=== PATIENT | female | born 1975 | race Caucasian/White ===

== ENCOUNTER 2019-09-22 17:44 | Emergency (ER) | payer OTHER ==
[~2019-09-22] VITALS: Ht 162.6 cm; Wt 75.0 kg
--- NOTE | 2019-09-22 18:57 | PHYS DOC ---
Past Medical History Past Medical History: Anxiety, GERD Past Surgical History: Cholecystectomy, Hysterectomy, Tonsillectomy, Tubal ligation, Other Additional Past Surgical Histo: UTERINE ABLATION Alcohol Use: Rarely Adult General Chief Complaint Chief Complaint: ANXIETY/PANIC ATTACK HPI HPI 44-year-old female presents to the emergency Department complaints of shaking, any increased concern for anxiety, palpitations, paresthesias, dry mouth. Patient has underlying history of anxiety, gastroesophageal reflux disease. She describes today that she was coming home on way and it took her a number of minutes to get to [place] she began feeling palpitations increased stress and concern for anxiety, she states she took a Xanax at that time however did not resolve or improve and therefore presented to the emergency department for further evaluation. Nothing makes her symptoms better. 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 Review of Systems Review of Systems Constitutional: Denies fever or chills [] Respiratory: Denies cough/+ shortness of breath [] Cardiovascular: No additional information not addressed in HPI [] GI: Denies abdominal pain, nausea, vomiting, bloody stools or diarrhea [] : Denies dysuria or hematuria [] Musculoskeletal: Denies back pain or joint pain [] Integument: Denies rash or skin lesions [] Neurologic: Denies headache, focal weakness or sensory changes [] All other systems were reviewed and found to be within normal limits, except as documented in this note. Current Medications Current Medications Current Medications Medications (Trade) Dose Ordered Sig/Miladys Start Time Stop Time Status Last Admin Dose Admin Lorazepam (Ativan Inj) 1 mg 1X ONCE 09/22/19 19:15 09/22/19 19:16 DC 09/22/19 20:13 1 MG Potassium Chloride (Klor-Con) 40 meq 1X ONCE 09/22/19 22:00 09/22/19 22:01 DC 09/22/19 22:02 40 MEQ Allergies Allergies Allergies Coded Allergies Type Severity Reaction Last Updated Verified acetaminophen Allergy Intermediate 09/22/19 Yes adhesive tape Allergy Intermediate 09/22/19 Yes propoxyphene Allergy Intermediate 09/22/19 Yes Physical Exam Physical Exam Constitutional: Well developed, well nourished, no acute distress, non-toxic appearance. [] HENT: Normocephalic, atraumatic, bilateral external ears normal, oropharynx moist, no oral exudates, nose normal. [] Eyes: PERRLA, EOMI, conjunctiva normal, no discharge. [] Cardiovascular:Heart rate regular rhythm, no murmur [] Lungs & Thorax: Bilateral breath sounds clear to auscultation [] Abdomen: Bowel sounds normal, soft, no tenderness, no masses, no pulsatile masses. [] Skin: Warm, dry, no erythema, no rash. [] Extremities: No tenderness, no edema. [] Neurologic: Alert and oriented X 3, no focal deficits noted. [] Psychologic: anxious/tearful/concerned, judgement normal, mood normal. [] Current Patient Data Vital Signs Vital Signs Date Time Temp Pulse Resp B/P (MAP) Pulse Ox O2 Delivery O2 Flow Rate FiO2 09/22/19 18:48 80 22 125/68 (87) 100 Room Air 09/22/19 18:30 97.5 97.5 Lab Values Laboratory Tests Test 09/22/19 18:09 09/22/19 21:00 Urine Collection Type Unknown Urine Color Yellow Urine Clarity Clear Urine pH 8.0 Urine Specific Pollock <=1.005 Urine Protein Negative mg/dL (NEG-TRACE) Urine Glucose (UA) Negative mg/dL (NEG) Urine Ketones (Stick) Trace mg/dL (NEG) Urine Blood Small (NEG) Urine Nitrite Negative (NEG) Urine Bilirubin Negative (NEG) Urine Urobilinogen Dipstick 0.2 mg/dL (0.2 mg/dL) Urine Leukocyte Esterase Negative (NEG) Urine RBC 0 /HPF (0-2) Urine WBC 0 /HPF (0-4) Urine Squamous Epithelial Cells Few /LPF Urine Bacteria Few /HPF (0-FEW) White Blood Count 5.5 x10^3/uL (4.0-11.0) Red Blood Count 4.20 x10^6/uL (3.50-5.40) Hemoglobin 13.1 g/dL (12.0-15.5) Hematocrit 37.7 % (36.0-47.0) Mean Corpuscular Volume 90 fL (79-100) Mean Corpuscular Hemoglobin 31 pg (25-35) Mean Corpuscular Hemoglobin Concent 35 g/dL (31-37) Red Cell Distribution Width 12.9 % (11.5-14.5) Platelet Count 241 x10^3/uL (140-400) Neutrophils (%) (Auto) 63 % (31-73) Lymphocytes (%) (Auto) 25 % (24-48) Monocytes (%) (Auto) 11 % (0-9) H Eosinophils (%) (Auto) 1 % (0-3) Basophils (%) (Auto) 0 % (0-3) Neutrophils # (Auto) 3.5 x10^3/uL (1.8-7.7) Lymphocytes # (Auto) 1.4 x10^3/uL (1.0-4.8) Monocytes # (Auto) 0.6 x10^3/uL (0.0-1.1) Eosinophils # (Auto) 0.0 x10^3/uL (0.0-0.7) Basophils # (Auto) 0.0 x10^3/uL (0.0-0.2) Sodium Level 144 mmol/L (136-145) Potassium Level 3.1 mmol/L (3.5-5.1) L Chloride Level 106 mmol/L (98-107) Carbon Dioxide Level 27 mmol/L (21-32) Anion Gap 11 (6-14) Blood Urea Nitrogen 9 mg/dL (7-20) Creatinine 0.7 mg/dL (0.6-1.0) Estimated GFR (Cockcroft-Gault) 90.5 BUN/Creatinine Ratio 13 (6-20) Glucose Level 89 mg/dL (70-99) Calcium Level 8.8 mg/dL (8.5-10.1) Total Bilirubin 0.4 mg/dL (0.2-1.0) Aspartate Amino Transferase (AST) 27 U/L (15-37) Alanine Aminotransferase (ALT) 24 U/L (14-59) Alkaline Phosphatase 122 U/L (46-116) H Troponin I Quantitative < 0.017 ng/mL (0.000-0.055) Total Protein 6.7 g/dL (6.4-8.2) Albumin 3.6 g/dL (3.4-5.0) Albumin/Globulin Ratio 1.2 (1.0-1.7) Laboratory Tests 09/22/19 21:00 Laboratory Tests 09/22/19 21:00 EKG EKG EKG interpretation time 1818, normal sinus rhythm, heart rate 74, normal axis, no STEMI[] Radiology/Procedures Radiology/Procedures [] Course & Med Decision Making Course & Med Decision Making Pertinent Labs and Imaging studies reviewed. (See chart for details) []44-year-old female presents to the emergency Department complaints of shaking, any increased concern for anxiety, palpitations, paresthesias, dry mouth. Patient has underlying history of anxiety, gastroesophageal reflux disease. She describes today that she was coming home on and it took her a number of minutes to get to [place] she began feeling palpitations increased stress and concern for anxiety, she states she took a Xanax at that time however did not resolve or improve and therefore presented to the emergency department for further evaluation. Nothing makes her symptoms better. 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 Reevaluation: patient received 1mg Ativan with improved symptoms Labs reviewed with evidence of hypokalemia - replaced in ER Recommend dc home Follow up with PCP Brenton Disclaimer Dragon Disclaimer This electronic medical record was generated, in whole or in part, using a voice recognition dictation system. Departure Departure Impression: Primary Impression: Panic attack Additional Impression: Hypokalemia Disposition: 01 HOME, SELF-CARE Condition: IMPROVED Referrals: MICHELL JACKSON (PCP) Patient Instructions: Anxiety and Panic Attacks, [id number], Hypokalemia Additional Instructions: Recommend follow up with PCP 3 - 5 days Return to the ER with worsening symptoms, intractable pain, fever, altered mental status Tylenol/Motrin as needed for pain Replaced K in ER Problem Qualifiers DAV KOHLER MD Sep 22, 2019 18:57
[2019-09-22 19:11] LABS: BILIRUBIN,URINE NEGATIVE (NEG); CLARITY,URINE CLEAR; COLOR,URINE YELLOW; NITRITE,URINE NEGATIVE (NEG); PROTEIN,URINE NEGATIVE (NEG-TRACE); UROBILINOGEN,URINE 0.2 mg/dL (0.2 mg/dL)
--- NOTE | 2019-09-22 19:26 | RAD ---
Exam: Chest one view INDICATION: Shortness of breath TECHNIQUE: Frontal view of the chest Comparisons: None FINDINGS: The cardiomediastinal silhouette and pulmonary vessels are within normal limits. The lung and pleural spaces are clear. IMPRESSION: No acute cardiopulmonary process. Electronically signed by: Mehran Diallo MD (09/22/2019 7:23 PM) [facility]
[2019-09-22 19:28] LABS: BACTERIA,URINE FEW /HPF (0-FEW); RBC,URINE 0 /HPF (0-2); SQUAMOUS EPITHELIAL CELL,UR FEW /LPF; WBC,URINE 0 /HPF (0-4)
[2019-09-22 21:18] LABS: BASO % 0 % (0-3); EOS % 1 % (0-3); HEMATOCRIT 37.7 % (36.0-47.0); HEMOGLOBIN 13.1 g/dL (12.0-15.5); LYMPH # 1.4 x10^3/uL (1.0-4.8); LYMPH % 25 % (24-48); MEAN CORPUSCULAR HEMOGLOBIN 31 pg (25-35); MEAN CORPUSCULAR HGB CONC 35 g/dL (31-37); MEAN CORPUSCULAR VOLUME 90 fL (79-100); MONO # 0.6 x10^3/uL (0.0-1.1); MONO % 11 % (0-9); NEUT # 3.5 x10^3/uL (1.8-7.7); NEUT % 63 % (31-73); PLATELET COUNT 241 x10^3/uL (140-400); RED CELL DISTRIBUTION WIDTH 12.9 % (11.5-14.5); WHITE BLOOD COUNT 5.5 x10^3/uL (4.0-11.0)
[2019-09-22 21:34] LABS: CALCIUM 8.8 mg/dL (8.5-10.1); CREATININE 0.7 mg/dL (0.6-1.0); GFR 90.5; POTASSIUM 3.1 mmol/L (3.5-5.1)
[2019-09-22 21:48] VITALS: BP 114/73
[2019-09-22 21:48] LABS: ALBUMIN 3.6 g/dL (3.4-5.0); ALBUMIN/GLOBULIN RATIO 1.2 (1.0-1.7); TOTAL BILIRUBIN 0.4 mg/dL (0.2-1.0); TOTAL PROTEIN 6.7 g/dL (6.4-8.2)
[2019-09-22] MEDS: POTASSIUM CHLORIDE 20 MEQ TABLET.ER. PO ONE (22:02)
--- NOTE | 2019-09-23 06:57 | EKG ---
[facility] [address] [place] [address] Test Date: 2019-09-22 Test Time: 18:19:20 Pat Name: SANDY BROWN Department: Room: Gender: F Building [employer] Supervisor: : 1975 Requested By: DAV KOHLER Order Number: [id number] Reading MD: Measurements Intervals [place] Rate: 74 P: 44 VT: 140 QRS: 22 QRSD: 86 T: 27 QT: 404 QTc: 454 Interpretive Statements SINUS RHYTHM NORMAL ECG RI6.01 No previous ECG available for comparison
== END 2019-09-22 22:10 | disposition home or self-care (01) ==
LOC: ER 17:44
DX: F41.0 Panic disorder [episodic paroxysmal anxiety] (principal); E87.6 Hypokalemia; R06.02 Shortness of breath; R68.2 Dry mouth, unspecified; F41.9 Anxiety disorder, unspecified; K21.9 Gastro-esophageal reflux disease without esophagitis; Z90.49 Acquired absence of other specified parts of digestive tract; Z90.710 Acquired absence of both cervix and uterus; Z90.89 Acquired absence of other organs; Z98.51 Tubal ligation status; Z98.890 Other specified postprocedural states; Z88.5 Allergy status to narcotic agent; Z88.6 Allergy status to analgesic agent; Z88.8 Allergy status to other drugs, medicaments and biological substances
CPT/HCPCS: 36415; 71045; 80053; 81001; 84484; 85025; 93005; 96374; 99285; J2060